=== PATIENT | female | born 1955 | race African-American/Black ===

== ENCOUNTER 2016-08-18 02:20 | Emergency (ER) | payer OTHER ==
[~2016-08-18] VITALS: Ht 162.6 cm; Wt 82.6 kg
[2016-08-18] MEDS ORDERED: DiphenhydrAMINE 50mg/ml Inj IM ONE (02:45)
[2016-08-18 02:53] VITALS: BP 150/75
[2016-08-18] MEDS ORDERED: BENADRYL25 MG ORAL (03:27)
--- NOTE | 2016-08-18 03:28 | Emergency Room Report ---
History of Present Illness General Chief Complaint: Skin Rash/Abscess Source: Patient Present Illness HPI Is a 61-year-old female with a history lupus. She get frequent for a an allergic reaction. She get achy allover. She is currently taking a steroid her ready. Also on Atarax. Tonight she had a flareup present with intense itching. Denies any fever chills denies any nausea vomiting. Similar to previous episodes Allergies: Coded Allergies: CODEINE (Verified Allergy, Unknown, 08/18/16) Patient History Past Medical History: see triage record, old chart reviewed Past Surgical History: other Pertinent Family History: none Social History: Denies: smoking Now: No Immunizations: other Reviewed Nursing Documentation: PMH: Agreed, PSxH: Agreed Nursing Documentation-PMH Hx Gastrointestinal Problems: Yes - LIVER MASS Review of Systems Eye: Denies: blurred vision, eye pain ENT: Denies: ear pain, nose congestion, throat swelling Respiratory: Denies: cough, shortness of breath Cardiovascular: Denies: chest pain, palpitations Gastrointestinal: Denies: abdominal pain, diarrhea, nausea, vomiting Musculoskeletal: Denies: back pain, joint pain Skin: Denies: rash Neurological: Denies: headache, numbness Endocrine: Denies: increased thirst, increased urine Hematologic/Lymphatic: Denies: easy bruising All Other Systems: negative except mentioned in HPI Physical Exam Vital Signs Date Time Temp Pulse Resp B/P Pulse Ox O2 Delivery O2 Flow Rate FiO2 08/18/16 02:29 97.7 79 16 150/75 98 Room Air vitals unremarkable Sp02 EP Interpretation: reviewed, normal General Appearance: well appearing, no apparent distress, alert Head: normocephalic, atraumatic Eyes: bilateral eye EOMI, bilateral eye PERRL ENT: hearing grossly normal, normal pharynx Neck: full range of motion, supple, no meningismus Respiratory: chest non-tender, lungs clear, normal breath sounds Cardiovascular #1: regular rate, rhythm, no murmur Gastrointestinal: normal bowel sounds, non tender, no mass, no organomegaly, no bruit, non-distended Musculoskeletal: back normal, gait/station normal, normal range of motion Psychiatric: mood/affect normal Skin: warm/dry, other - Skin with diffuse erythema. Occasional welts. Medical Decision Making Diagnostic Impression: Primary Impression: Allergic reaction Qualified Codes: T78.40XA - Allergy, unspecified, initial encounter ER Course Patient presents with allergic reaction/urticaria. Unknown etiology. We'll discharge home. Last Vital Signs Date Time Temp Pulse Resp B/P Pulse Ox O2 Delivery O2 Flow Rate FiO2 08/18/16 02:53 97.7 87 16 150/75 98 Room Air Status: improved Disposition: HOME, SELF-CARE Condition: Stable Scripts Diphenhydramine Hcl* (BENADRYL*) 25 Mg Capsule 50 MG ORAL Q6H Y for Itching, #30 CAP Prov: ZORAN HEREDIA M.D. 08/18/16 Patient Instructions: Rash Additional Instructions: Followup with your Dr. in 2-3 days. Return it worse. ZORAN HEREDIA M.D. Aug 18, 2016 03:28
[2016-08-18 03:30] VITALS: BP 150/75
== END 2016-08-18 03:30 | disposition home or self-care (01) ==
LOC: EMR 03:30
DX: L50.0 Allergic urticaria (principal); Z88.6 Allergy status to analgesic agent
CPT/HCPCS: 96372; 99283; J1200